=== PATIENT | female | born 1960 | race Caucasian/White ===

== ENCOUNTER 2017-04-06 09:48 | Day surgery (SDC) | payer OTHER ==
[~2017-04-06] VITALS: Ht 160 cm; Wt 57.1 kg
[2017-04-06 10:50] VITALS: Ht 160 cm; Wt 57.1 kg
[2017-04-06 11:18] VITALS: BP 147/78; PULSE 50; RESP 22
--- NOTE | 2017-04-06 12:11 | OPPN ---
Date/Time of Note Date/Time of Note DATE: 04/06/17 TIME: 12:10 Operative Report Preoperative Diagnosis Screening Postoperative Diagnosis Internal hemorrhoids No colon neoplasm was identified Operation/Procedure Performed Colonoscopy Surgeon see signature line visitor use assistant None Anesthesia: moderate sedation Estimated blood loss: none Transfusion Required none Specimen None Grafts/Implants none Complications none SARAH ASH MD Apr 06, 2017 12:11
--- NOTE | 2017-04-06 12:11 | OPPN ---
Date/Time of Note Date/Time of Note DATE: 04/06/17 TIME: 12:10 Operative Report Preoperative Diagnosis Screening Postoperative Diagnosis Internal hemorrhoids No colon neoplasm was identified Operation/Procedure Performed Colonoscopy Surgeon see signature line assistant maintenance manager None Anesthesia: moderate sedation Estimated blood loss: none Transfusion Required none Specimen None Grafts/Implants none Complications none SARAH ASH MD Apr 06, 2017 12:11
[2017-04-06] MEDS ORDERED: MIDAZOLAM 1 MG/ML 2 ML INJ ONE ×2 (12:15→12:16)
[2017-04-06] MEDS ORDERED: FENTAnyl 50 MCG/ML VIAL ONE (12:15)
[2017-04-06 12:45] VITALS: BP 119/80; PULSE 55; RESP 16
--- NOTE | 2017-04-07 02:55 | GILP ---
DATE OF PROCEDURE: NAME OF PROCEDURE: Colonoscopy. SURGEON: Sarah Merrill MD PREOPERATIVE DIAGNOSIS: Screening colonoscopy. POSTOPERATIVE DIAGNOSES 1. Colonoscopy all the way to the cecum. 2. Internal hemorrhoids. 3. No colon neoplasm was identified. INDICATION FOR THE PROCEDURE: Ms. Papo Reno is a 56-year-old female patient who was scheduled fo r screening colonoscopy. The procedure and possible complications are well explained to the patient; she understood and conse nted to the procedure. DESCRIPTION OF PROCEDURE: Under the influence of fentanyl and Versed, the colonoscope was carefully introduced in the rectum. Under the direct vision, it was advanced all the way to the cecum. FINDINGS: The patient had a tortuous long colon and no colon neoplasm was identified. The patient was noted to have internal hemorrhoids. She tolerated the procedure very well and there was no complication from the procedure. At the end of the procedure, she was awake with stable vital signs and she was discharged home to the care of h er family. IMPRESSION: 1. Colonoscopy all the way to the cecum. 2. Long tortuous colon. 3. Internal hemorrhoids. 4. No colon neoplasm was identified. PLAN: Next screening colonoscopy in 10 years. Dictated By: SARAH PRICE/YESSENIA Conf#: [id number] DID#: [id number]
== END 2017-04-06 15:19 | disposition home or self-care (01) ==
LOC: GIL 09:48
PROVIDERS: ATTEND Internal Medicine Gastroenterology
DX: Z12.11 Encounter for screening for malignant neoplasm of colon (principal); K64.8 Other hemorrhoids
CPT/HCPCS: 45378; 84703; J2250; J3010